=== PATIENT | female | born 1970 | race Caucasian/White ===

== ENCOUNTER 2018-09-30 21:07 | Inpatient (IN) | payer SELFPAY ==
[~2018-09-30] VITALS: Ht 162.6 cm; Wt 60.9 kg
[2018-09-30] MEDS ORDERED: MIDAZOLAM 1 MG/ML, 2ML ONE (21:19)
[2018-09-30 21:22] LABS: BASOPHILS # (AUTO) 0.04 x10^3/uL (0-0.1); BASOPHILS % (AUTO) 1 % (0-1); EOSINOPHILS # (AUTO) 0.18 x10^3/uL (0-0.4); EOSINOPHILS % (AUTO) 2 % (1-7); LYMPHOCYTES % (AUTO) 22 % (22-44); MD NO; MEAN CORPUSCULAR HEMOGLOBIN 27.2 pg (27.0-34.8); MEAN CORPUSCULAR HGB CONC 31.3 g/dL (32.4-35.8); MEAN CORPUSCULAR VOLUME 86.9 fL (80-100); MEAN PLATELET VOLUME 8.2 fL (7.4-10.4); MONOCYTES # (AUTO) 0.44 x10^3/uL (0.2-0.8); MONOCYTES % (AUTO) 6 % (2-9); NEUTROPHILS # (AUTO) 5.42 x10^3/uL (1.8-6.8); NEUTROPHILS % (AUTO) 70 % (42-75); PLATELET COUNT 274 x10^3/uL (130-400)
[2018-09-30] MEDS ORDERED: SODIUM CHLORIDE 0.9% 1,000ML IVBOLUS ONE (21:30)
[2018-09-30] MEDS: PLEASE ENTER ALLERGIES MC SCH (21:30)
[2018-09-30 21:31] LABS: ALBUMIN 3.7 g/dL (3.4-5.0); ANION GAP 10 mmol/L (5-15); CALCIUM 8.2 mg/dL (8.5-10.1); CHLORIDE 112 mmol/L (98-107)
[2018-09-30 21:32] LABS: SALICYLATE LEVEL < 1.7 mg/dL (2.8-20.0)
[2018-09-30 21:37] LABS: ALANINE AMINOTRANSFERASE 19 U/L (12-78); ALKALINE PHOSPHATASE 77 U/L (45-117); BILIRUBIN,TOTAL 0.4 mg/dL (0.2-1.0); CREATININE 0.76 mg/dL (0.55-1.02); TOTAL PROTEIN 7.8 g/dL (6.4-8.2)
--- NOTE | 2018-09-30 21:52 | NUR ---
PT BACK FROM CT PT STILL REQUIRES NO SEDATION. BLOOD AND URINE TO LAB AND AWAITING RESULTS.
[2018-09-30 22:10] LABS: MICROSCOPIC AUTO
[2018-09-30 22:11] LABS: CULTURE INDICATED? NO
[2018-09-30 22:16] LABS: AMPHETAMINE SCREEN, URINE Positive (Negative); BARBITURATE SCREEN, URINE Negative (Negative); BENZODIAZEPINE SCREEN, URINE Negative (Negative); CANNABINOID SCREEN, URINE Positive (Negative); COCAINE SCREEN, URINE Negative (Negative); METHADONE SCREEN, URINE Negative (Negative); OPIATE SCREEN, URINE Negative (Negative)
--- NOTE | 2018-09-30 22:29 | NUR ---
PT REMAINS UNSEDATED AND VSS RESTING IN NO DISTRESS. PT RESPONDS TO GAG AND DEEP PAIN STIM. PT AWAITING ADMIT TO CCU.
--- NOTE | 2018-09-30 23:30 | NUR ---
BF AT BEDSIDE AND HAD LITTLE HEALTH HX FOR PT. PT WAS MEDICATED WITH 2 MG OF VERSED FOR LIGHT SEDATION AFTER RT GAVE ORAL CARE.
[2018-10-01] MEDS ORDERED: MIDAZOLAM 1 MG/ML, 2ML IVPush ONE
[2018-10-01] MEDS ORDERED: PROPOFOL 100 ML IV ONE (00:07)
--- NOTE | 2018-10-01 00:16 | NUR ---
PT WAKING UP SO WAS PLACED ON PROPOFOL DRIP STARTED AT 10 MEQ. PT ASLEEP IN NO DISTRESS AT THIS TIME
[2018-10-01] MEDS ORDERED: PROPOFOL 100 ML IV PRN ×2 (00:30→02:29)
[2018-10-01] MEDS ORDERED: SODIUM CHLORIDE 0.9% 1,000 ML IV SCH ×2 (00:35→02:30)
[2018-10-01] MEDS ORDERED: DOCUSATE 100 MG CAPSULE PO PRN (01:00)
[2018-10-01] MEDS ORDERED: HEPARIN 5,000 UNITS/ML, 1ML SQ SCH ×2 (01:00→02:30)
[2018-10-01] MEDS ORDERED: hydrALAzine 20 MG/ML, 1ML IVPush PRN (01:00)
[2018-10-01] MEDS ORDERED: POLYETHYLENE GLYCOL 17 GM PACKET PO PRN (01:00)
[2018-10-01] MEDS ORDERED: ONDANSETRON 2MG/ML, 2ML IVPush PRN (01:00)
[2018-10-01] MEDS ORDERED: OXYcodone IR 5MG TABLET PO PRN (01:00)
[2018-10-01] MEDS ORDERED: morphine SULFATE 10 MG/ML, 1ML IVPush PRN (01:00)
[2018-10-01] MEDS ORDERED: PROMETHAZINE 25 MG/ML, 1ML IM PRN (01:00)
[2018-10-01] MEDS ORDERED: ACETAMINOPHEN 325 MG TABLET PO PRN (01:00)
[2018-10-01] MEDS ORDERED: ONDANSETRON ODT 4 MG PO PRN (01:00)
--- NOTE | 2018-10-01 01:02 | NUR ---
PT RESTLESS AND KICKING AGAIN PROPOFOL INCREASED TO 20 MEQ AND PT NOW QUITE AGAIN WITH VSS.
[2018-10-01 02:02] LABS: FREE T4 (FREE THYROXINE) 1.04 ng/dL (0.76-1.46)
[2018-10-01 02:04] LABS: HEMOGLOBIN A1C 5.7 % (4.2-6.3)
--- NOTE | 2018-10-01 02:09 | NUR ---
PT WITH SEDATION TURNED OFF X 10 MIN AND FIGHTING THE TUBE WITH INCREASED AGGITATION. PT EXTUBATED AND IS BREATHING WITH NC AT 3 L. PT FOLLOWING COMANDS AND IS SPEAKING WITH STAFF BUT STILL A/O X 2.
[2018-10-01] MEDS ORDERED: NOREPINEPHRINE 4 MG in SODIUM CHLORIDE 0.9% 246 ML IV PRN (02:29)
[2018-10-01] MEDS ORDERED: DEXTROSE 4 GM TAB.CHEW PO PRN (02:30)
[2018-10-01] MEDS ORDERED: SENNA 176 MG/5 ML ORAL SOL NG PRN (02:30)
[2018-10-01] MEDS ORDERED: ALBUTEROL/IPRATROPIUM 2.5MG/0.5MG, 3 ML INLINE SCH (02:30)
[2018-10-01] MEDS ORDERED: LIDOCAINE-MPF 1%, 2ML ENDO PRN (02:30)
[2018-10-01] MEDS ORDERED: GLUCAGON 1 MG IM PRN (02:30)
[2018-10-01] MEDS ORDERED: BISACODYL 10 MG SUPP PR PRN (02:30)
[2018-10-01] MEDS ORDERED: LACTULOSE 20 GM/30 ML UDC NG PRN (02:30)
[2018-10-01] MEDS ORDERED: DEXTROSE 50%, 50ML SYRINGE IVPush PRN (02:30)
[2018-10-01] MEDS ORDERED: PHARMACY MAY ADJ FOR RENAL FX MC SCH (02:30)
[2018-10-01] MEDS ORDERED: FENTANYL PF 100 MCG/2ML IVPush PRN (02:30)
[2018-10-01] MEDS ORDERED: SENNA/DOCUSATE TABLET NG PRN (02:30)
[2018-10-01] MEDS ORDERED: DIAZEPAM 5 MG/ML, 2ML IV PRN (03:00)
[2018-10-01] MEDS ORDERED: AMPICILLIN/SULBACTAM 3 GM in SODIUM CHLORIDE 0.9% 100 ML IV SCH (03:00)
[2018-10-01 03:16] LABS: BASOPHILS # (AUTO) 0.04 x10^3/uL (0-0.1); BASOPHILS % (AUTO) 0 % (0-1); EOSINOPHILS # (AUTO) 0.02 x10^3/uL (0-0.4); EOSINOPHILS % (AUTO) 0 % (1-7); LYMPHOCYTES # (AUTO) 1.92 x10^3/uL (1-3.4); LYMPHOCYTES % (AUTO) 21 % (22-44); MD NO; MEAN CORPUSCULAR HEMOGLOBIN 27.2 pg (27.0-34.8); MEAN CORPUSCULAR HGB CONC 31.8 g/dL (32.4-35.8); MEAN CORPUSCULAR VOLUME 85.5 fL (80-100); MEAN PLATELET VOLUME 8.2 fL (7.4-10.4); MONOCYTES % (AUTO) 7 % (2-9); NEUTROPHILS # (AUTO) 6.59 x10^3/uL (1.8-6.8); NEUTROPHILS % (AUTO) 72 % (42-75); PLATELET COUNT 226 x10^3/uL (130-400); RED BLOOD COUNT 4.37 x10^6/uL (3.82-5.3); RED CELL DISTRIBUTION WIDTH 15.6 % (9.6-15.2)
[2018-10-01 03:26] LABS: INTERNATIONAL NORMALIZED RATIO 1.01 (0.93-1.1); PROTHROMBIN TIME 10.6 Seconds (9.6-11.5)
[2018-10-01 03:30] LABS: ANION GAP 7 mmol/L (5-15); CHLORIDE 115 mmol/L (98-107); CREATININE 0.53 mg/dL (0.55-1.02); TRIGLYCERIDES 64 mg/dL (50-200)
--- NOTE | 2018-10-01 03:31 | NUR ---
PT NOW A/O X 4. PT REPORTS TAKING A STREET DRUG CALLED [facility] AND HAS DONE THAT MED MANY TIMES BEFORE. PT DENIES SI AND VSS ON RA.
[2018-10-01 03:36] LABS: TROPONIN I 0.401 ng/mL (0.000-0.045)
[2018-10-01] MEDS ORDERED: HEPARIN 5,000 UNITS/ML, 1ML ONE (03:57)
--- NOTE | 2018-10-01 04:08 | NUR ---
PT MEDICATED ORDERED AND NOW A/O X 4
[2018-10-01] MEDS: PLEASE ENTER ALLERGIES MC SCH (04:10)
--- NOTE | 2018-10-01 04:29 | NUR ---
REPORT CALLED TO FLOOR. PT READY TO GO
[2018-10-01 04:30] VITALS: BP 145/91
[2018-10-01] MEDS ORDERED: INSULIN LISPRO 100 UNITS/ML, PEN SQ-INSULIN SCH (07:00)
[2018-10-01 07:50] VITALS: BP 135/88
[2018-10-01] MEDS ORDERED: FAMOTIDINE 20 MG/2 ML IVPush SCH (09:00)
[2018-10-01] MEDS ORDERED: SODIUM CHLORIDE FLUSH 10ML SYR IVF SCH (09:00)
[2018-10-01] MEDS ORDERED: PANTOPRAZOLE 40 MG IV IV SCH (09:00)
== END 2018-10-01 07:52 | disposition left against medical advice (07) | DRG 208 ==
LOC: ED 10-01 00:53 → EDIP 10-01 01:00 → 5SO 10-01 04:41
PROVIDERS: ADMIT Internal Medicine; ATTEND Internal Medicine
PROC: 0T9B70Z Drainage of Bladder with Drainage Device, Via Natural or Artificial Opening (ICD-10-PCS; principal; 2018-09-30)
PROC: 5A1935Z Respiratory Ventilation, Less than 24 Consecutive Hours (ICD-10-PCS; 2018-09-30)
DX: J96.01 Acute respiratory failure with hypoxia (principal); G92 Toxic encephalopathy; F15.93 Other stimulant use, unspecified with withdrawal; E86.0 Dehydration; F12.10 Cannabis abuse, uncomplicated; I10 Essential (primary) hypertension
CPT/HCPCS: 36415; 36600; 51702; 70450; 71045; 80048; 80053; 80307; 81001; 82140; 82375; 82803; 83036; 83605; 83735; 83880; 83930; 84100; 84145; 84439; 84443; 84478; 84484; 84703; 85025; 85610; 85730; 87070; 87181; 87184; 87205; 93005; 94002; 94003; 96372; 96374; G0378; J0295; J1644; J2250; J2704; J7030